=== PATIENT | female | born 1950 | race Caucasian/White ===

== ENCOUNTER 2017-06-11 05:23 | Day surgery (SDC) | payer MEDICARE, BC ==
[~2017-06-11] VITALS: Ht 170.2 cm; Wt 83.9 kg
[2017-06-11] MEDS ORDERED: SODIUM CHLORIDE 0.9% 1,000 ML IV SCH (06:22)
[2017-06-11] MEDS ORDERED: OXYC10TA6 PO (06:25)
[2017-06-11] MEDS ORDERED: GABA100C PO (06:25)
[2017-06-11] MEDS ORDERED: TRAZ50TA18 PO (06:25)
[2017-06-11] MEDS ORDERED: OMEP-110 PO (06:25)
[2017-06-11] MEDS ORDERED: PROTAMINE SULFATE 10 MG/ML, 5ML ONE (06:46)
[2017-06-11] MEDS ORDERED: THROMBIN 5,000 UNIT VIAL TP ONE (06:46)
[2017-06-11] MEDS ORDERED: HEPARIN 1,000 UNITS/ML, 10ML ONE (06:47)
[2017-06-11] MEDS ORDERED: BUPIVACAINE/PF-EPI 0.5% 1:200K ONE (06:47)
[2017-06-11 06:54] VITALS: BP 129/69
[2017-06-11] MEDS ORDERED: FENTANYL PF 100 MCG/2ML ONE ×2 (07:35→09:27)
[2017-06-11] MEDS ORDERED: MIDAZOLAM 1 MG/ML, 2ML ONE (07:35)
[2017-06-11] MEDS ORDERED: PROPOFOL 10 MG/ML, 20ML ONE (07:35)
[2017-06-11] MEDS ORDERED: DEXAMETHASONE 4 MG/ML, 1ML ONE (07:40)
[2017-06-11] MEDS ORDERED: ONDANSETRON 2MG/ML, 2ML ONE (07:40)
[2017-06-11] MEDS ORDERED: CEFAZOLIN 1,000 MG ONE (07:40)
[2017-06-11] MEDS ORDERED: PHENYLEPHRINE 10 MG/ML ONE (07:40)
[2017-06-11] MEDS ORDERED: LIDOCAINE 2%, 10ML ONE (07:46)
[2017-06-11] MEDS ORDERED: HYDROmorphone 1 MG/ML, 1ML IV PRN (09:00)
[2017-06-11] MEDS ORDERED: MEPERIDINE/PF 25MG/0.5ML IVPush PRN (09:00)
[2017-06-11] MEDS ORDERED: LABETALOL 5MG/ML, 20ML IV PRN (09:00)
[2017-06-11] MEDS ORDERED: MIDAZOLAM 1 MG/ML, 2ML IV PRN (09:00)
[2017-06-11] MEDS ORDERED: OXYcodone 5 MG/5 ML ORAL.SOL UDC PO PRN (09:00)
[2017-06-11] MEDS ORDERED: ONDANSETRON 2MG/ML, 2ML IVPush PRN (09:00)
[2017-06-11] MEDS ORDERED: OXYcodone 5 MG/5 ML ORAL.SOL UDC ONE (09:27)
[2017-06-11] MEDS: FENTANYL PF 100 MCG/2ML IV PRN ×3 (09:32→10:00)
== END 2017-06-11 11:08 | disposition home or self-care (01) ==
LOC: OUT 05:23
PROVIDERS: ATTEND Surgery Vascular Surgery
DX: N18.6 End stage renal disease (principal)
CPT/HCPCS: 36415; 36821; 49324; 80047; 93005; C1750; J0690; J1100; J1644; J2250; J2370; J2405; J2704; J3010; J3490; J7030; J2720

== ENCOUNTER 2018-05-06 09:16 | Day surgery (SDC) | payer MEDICARE, BC ==
[~2018-05-06] VITALS: Ht 170.2 cm; Wt 82.8 kg
[~2018-05-06 09:16] MED LIST: GABA100C PO; OMEP-110 PO; OXYC10TA6 PO; TRAZ50TA66 PO
[2018-05-06] MEDS ORDERED: SODIUM CHLORIDE 0.9% 1,000 ML IV SCH (09:47)
[2018-05-06 09:48] VITALS: BP 118/71
[2018-05-06] MEDS ORDERED: PLEASE ENTER HEIGHT AND WEIGHT MC SCH (10:00)
[2018-05-06] MEDS ORDERED: CEFAZOLIN 1,000 MG ONE (10:49)
[2018-05-06] MEDS ORDERED: PROPOFOL 10 MG/ML, 20ML ONE (10:49)
[2018-05-06] MEDS ORDERED: ROCURONIUM 10MG/ML,5ML ONE (10:49)
[2018-05-06] MEDS ORDERED: SUCCINYLCHOLINE 20 MG/ML, 10ML ONE (10:49)
[2018-05-06] MEDS ORDERED: HEPARIN 1,000 UNITS/ML, 10ML ONE (11:37)
[2018-05-06] MEDS ORDERED: MIDAZOLAM 1 MG/ML, 2ML ONE (14:39)
[2018-05-06] MEDS ORDERED: KETOROLAC 30 MG/1 ML IV PRN (15:00)
[2018-05-06] MEDS ORDERED: PROMETHAZINE 25 MG/ML, 1ML IV PRN (15:00)
[2018-05-06] MEDS ORDERED: ONDANSETRON 2MG/ML, 2ML IVPush PRN (15:00)
[2018-05-06] MEDS ORDERED: METOCLOPRAMIDE 5 MG/ML, 2ML IV PRN (15:00)
[2018-05-06] MEDS ORDERED: MEPERIDINE/PF 25MG/0.5ML IVPush PRN (15:00)
[2018-05-06] MEDS ORDERED: OXYcodone 5 MG/5 ML ORAL.SOL UDC PO PRN (15:00)
[2018-05-06] MEDS ORDERED: ALBUTEROL SULFATE 2.5 MG/3 ML NPPB PRN (15:00)
[2018-05-06] MEDS ORDERED: LABETALOL 5MG/ML, 20ML IV PRN (15:00)
[2018-05-06] MEDS ORDERED: hydrALAzine 20 MG/ML, 1ML IV PRN (15:00)
[2018-05-06] MEDS ORDERED: HYDROmorphone 1 MG/ML, 1ML INJ ONE (15:57)
[2018-05-06] MEDS ORDERED: FENTANYL PF 100 MCG/2ML ONE (15:57)
[2018-05-06] MEDS ORDERED: OXYcodone 5 MG/5 ML ORAL.SOL UDC ONE (15:57)
[2018-05-06] MEDS: HYDROmorphone 1 MG/ML, 1ML INJ IV PRN ×3 (16:01→16:18)
[2018-05-06] MEDS: FENTANYL PF 100 MCG/2ML IV PRN ×2 (16:02→16:26)
[2018-05-06] MEDS ORDERED: MEPERIDINE/PF 25MG/ML,1ML ONE (16:28)
== END 2018-05-06 18:05 | disposition home or self-care (01) ==
LOC: OUT 09:16
PROVIDERS: ATTEND Surgery Vascular Surgery
DX: T82.898A Other specified complication of vascular prosthetic devices, implants and grafts, initial encounter (principal); Y83.8 Other surgical procedures as the cause of abnormal reaction of the patient, or of later complication, without mention of misadventure at the time of the procedure; Y92.89 Other specified places as the place of occurrence of the external cause; N18.6 End stage renal disease
CPT/HCPCS: 36415; 36581; 36821; 80047; 93005; C1751; J0330; J0690; J1170; J1644; J2175; J2250; J2704; J3010

== ENCOUNTER 2018-05-20 10:04 | Day surgery (SDC) | payer MEDICARE, BC ==
[~2018-05-20] VITALS: Ht 170.2 cm; Wt 82.7 kg
[2018-05-20 10:56] VITALS: BP 110/69
[2018-05-20] MEDS ORDERED: SODIUM CHLORIDE 0.9% 1,000 ML IV SCH (11:00)
[2018-05-20] MEDS ORDERED: BUPIVACAINE/EPI 0.5% 1:200K ONE (12:40)
[2018-05-20] MEDS ORDERED: HEPARIN 5,000 UNITS/ML, 1ML ONE (12:40)
[2018-05-20] MEDS ORDERED: THROMBIN 20,000 UNIT VIAL TP ONE (13:25)
[2018-05-20] MEDS ORDERED: MIDAZOLAM 1 MG/ML, 2ML ONE (13:52)
[2018-05-20] MEDS ORDERED: FENTANYL PF 100 MCG/2ML ONE ×2 (13:52→15:07)
[2018-05-20] MEDS ORDERED: CEFAZOLIN 1,000 MG ONE (13:55)
[2018-05-20] MEDS ORDERED: PROPOFOL 10 MG/ML, 20ML ONE (13:55)
[2018-05-20] MEDS ORDERED: ONDANSETRON 2MG/ML, 2ML IV PRN (14:30)
[2018-05-20] MEDS ORDERED: LORazepam 2 MG/ML, 1ML IVPush PRN (14:30)
[2018-05-20] MEDS ORDERED: OXYcodone 5 MG/5 ML ORAL.SOL UDC PO PRN (14:30)
[2018-05-20] MEDS ORDERED: HYDROmorphone 1 MG/ML, 1ML VIAL ONE (15:07)
[2018-05-20] MEDS ORDERED: OXYcodone 5 MG/5 ML ORAL.SOL UDC ONE (15:07)
[2018-05-20] MEDS: FENTANYL PF 100 MCG/2ML IV PRN ×2 (15:10→15:25)
[2018-05-20] MEDS: HYDROmorphone 2 MG/ML, 1ML IVPush PRN ×2 (15:17→15:35)
== END 2018-05-20 18:05 | disposition home or self-care (01) ==
LOC: OUT 10:04
PROVIDERS: ATTEND Surgery Vascular Surgery
DX: T82.590A Other mechanical complication of surgically created arteriovenous fistula, initial encounter (principal); N18.6 End stage renal disease; Y83.8 Other surgical procedures as the cause of abnormal reaction of the patient, or of later complication, without mention of misadventure at the time of the procedure; Y92.89 Other specified places as the place of occurrence of the external cause
CPT/HCPCS: 36415; 36832; 80047; C1769; J0690; J1170; J1644; J2250; J2704; J3010; J7030

== ENCOUNTER → 2019-12-02 | Outpatient (CLI) | payer MEDICARE, BC | END | disposition home or self-care (01) | LOC: CVU 14:24 | PROVIDERS: ATTEND Internal Medicine Hematology & Oncology | DX: C90.00 Multiple myeloma not having achieved remission (principal); I08.3 Combined rheumatic disorders of mitral, aortic and tricuspid valves | CPT/HCPCS: 93306 ==

== ENCOUNTER 2020-02-25 14:25 | Inpatient (IN) | payer MEDICARE, BC ==
[~2020-02-25] VITALS: Ht 170.2 cm; Wt 76.5 kg
--- NOTE | 2020-02-25 14:40 | NUR ---
Bib by ezekiel from urgent care (d/t covid sxs and room air pox of 69%) Patient reports 5 days of increased sob/fever/chills/fatigue Dialysis m/w/f. Missed today, had full treatment sunday Room air pox confirmed (immediatley drops to 60s) b/p . "thats not too abnormal-I take midodrine but i didn't take my last 2 doses." placed on field agronomist, ecg obtained right forearm piv placed and right chest port accessed full set of labs including lactate and blood cultures drawn Provider to bedside
--- NOTE | 2020-02-25 15:26 | NUR ---
CXR AT BEDSIDE
[2020-02-25] MEDS ORDERED: SODIUM CHLORIDE 0.9% 1,000ML IVBOLUS ONE ×2 (15:30→16:30)
[2020-02-25] MEDS ORDERED: SODIUM CHLORIDE FLUSH 10ML SYR IVF ONE ×2 (15:30→16:30)
[2020-02-25] MEDS ORDERED: MIDODRINE 5 MG TABLET PO ONE (15:37)
[2020-02-25 15:41] LABS: MEAN CORPUSCULAR HEMOGLOBIN 33.5 pg (27.0-34.8); MEAN CORPUSCULAR HGB CONC 31.7 g/dL (32.4-35.8); MEAN PLATELET VOLUME 10.9 fL (7.4-10.4); PLATELET COUNT 115 x10^3/uL (130-400); RED BLOOD COUNT 3.04 x10^6/uL (3.82-5.3); RED CELL DISTRIBUTION WIDTH 20.4 % (9.6-15.2)
[2020-02-25 15:45] LABS: ALBUMIN 2.6 g/dL (3.4-5.0); ANION GAP 14 mmol/L (5-15); CALCIUM 7.1 mg/dL (8.5-10.1); CHLORIDE 96 mmol/L (98-107)
--- NOTE | 2020-02-25 15:50 | NUR ---
IVF ON DIAL A FLOW AT 125/HR (DIALYSIS PATIENT WHO APPEARS FLUID OVERLOADED AND MISSED DIALYSIS TODAY) MIDODRINE ORDERED FROM PHARMACY
--- NOTE | 2020-02-25 15:50 | NUR ---
MIDODRINE HELD PER MD (POTENTIAL SEPSIS=NPO) BLOOD PRESSURE REMAINS QUITE LOW ESPECIALLY DIASTOLIC TROPONIN ELEVATED-PROVIDER MADE AWARE- TO ADMIN 162 OF ASA RECREATION ATTENDANT SUPERVISOR MADE AWARE OF POTENTIAL FOR DETERIORATION-TO MOVE TO TRAUMA ROOM REPORT TO TRAUMA RN ANTOINETTE
[2020-02-25 15:51] LABS: ALANINE AMINOTRANSFERASE 18 U/L (12-78); ALKALINE PHOSPHATASE 122 U/L (45-117); CREATININE 6.81 mg/dL (0.55-1.02); TOTAL PROTEIN 5.4 g/dL (6.4-8.2)
[2020-02-25 15:55] LABS: TROPONIN I 0.191 ng/mL (0.000-0.045)
--- NOTE | 2020-02-25 15:55 | NUR ---
WITH REASSESSMENT PATIENT REPORTS "I TOOK 20MG OF MY MIDODRINE" PATIENT INSTRUCTED ON IMPORTANCE OF REMAINING NPO
[2020-02-25 16:10] LABS: MD YES
[2020-02-25 16:12] LABS: MONOS#(MANUAL) 1.04 x10^3/uL (0.3-2.7); MONOS% (MANUAL) 4 % (2-9)
[2020-02-25 16:13] LABS: BAND#(MANUAL) 2.87 x10^3/uL; BANDS%(MANUAL) 11 % (0-7); LYMPH#(MANUAL) 0.26 x10^3/uL (1-3.4); LYMPHS% (MANUAL) 1 % (22-44); SEGS% (MANUAL) 84 % (42-75)
[2020-02-25 16:14] LABS: ANISOCYTOSIS 2+
[2020-02-25 16:15] LABS: HYPOCHROMIA 1+; OVALOCYTES 1+
[2020-02-25] MEDS ORDERED: PIPERACILLIN/TAZO/PMX 3.375GM 50 ML ONE (16:15)
[2020-02-25] MEDS ORDERED: ASPIRIN 81 MG TABLET CHEW ONE (16:15)
[2020-02-25 16:16] LABS: SCHISTOCYTES 1+; SPHEROCYTES 1+
[2020-02-25 16:17] LABS: <PLATELET ESTIMATE> DECREASED; <PLT MORPHOLOGY> NORMAL PLT MORPH
[2020-02-25 16:18] LABS: CRENATED 1+
[2020-02-25] MEDS ORDERED: PIPERACILLIN/TAZO/PMX 3.375GM 50 ML IV ONE (16:30)
--- NOTE | 2020-02-25 16:30 | NUR ---
REPORT FROM SUZANNE ALMAZAN
--- NOTE | 2020-02-25 16:30 | NUR ---
RESUSCITATION POC CLARIFIED WITH ERP (DR. BUTCHER) PATIENT WITH MULTIPLE SIRS VITALS SIGNS WELL ELEVATED WBC/BILIRUBIN. TO BOLUS A TOTAL OF 1L NS; NO 30ML/KG PATIENT OVERLOADED WITH FLUID. AFTER THAT LITER ERP TO PERFORM BEDSIDE ECHO TO DETERMINE NEED FOR MORE FLUIDS OR TRANSITION TO LEVOPHED FOR MAP >65
[2020-02-25] MEDS ORDERED: ASPIRIN 81 MG TABLET CHEW PO ONE ×2 (17:00)
[2020-02-25] MEDS ORDERED: DEXAMETHASONE 4 MG/ML, 5ML IVPush ONE (17:00)
[2020-02-25] MEDS ORDERED: NOREPINEPHRINE 8 MG in SODIUM CHLORIDE 0.9% 242 ML IV PRN (17:00)
--- NOTE | 2020-02-25 17:10 | NUR ---
DR Kimbrough at bedside for evaluation.
--- NOTE | 2020-02-25 17:11 | NUR ---
Per Dr. Luis E monroy with only prior 500 ml NS bolus due to BNP [id number], not ordered 2340 as sepsis protocol.
[2020-02-25] MEDS ORDERED: DONE5TAB14 PO (17:20)
[2020-02-25] MEDS ORDERED: ONDA4TAB7 PO (17:20)
[2020-02-25] MEDS ORDERED: MIDO10TA PO (17:20)
[2020-02-25] MEDS ORDERED: VANCOMYCIN PER PHARMACY MC PRN (17:30)
[2020-02-25] MEDS ORDERED: PHARMACOKINETIC MONITORING MC PRN (17:30)
[2020-02-25] MEDS ORDERED: VANCOMYCIN 1,500 MG in SODIUM CHLORIDE 0.9% 250 ML IV ONE ×2 (17:30)
[2020-02-25] MEDS ORDERED: PHARMACY MAY ADJ FOR RENAL FX MC PRN (17:30)
[2020-02-25] MEDS ORDERED: DEXAMETHASONE 4 MG/ML, 5ML ONE (17:36)
[2020-02-25] MEDS ORDERED: ONDANSETRON 2MG/ML, 2ML IVPush PRN (18:00)
[2020-02-25] MEDS: HEPARIN 5,000 UNITS/ML, 1ML SQ SCH (18:00)
--- NOTE | 2020-02-25 18:13 | NUR ---
Report called to Ceci ALMAZAN. Pt and family aware of transfer.
[2020-02-25 18:43] VITALS: BP 105/28
[2020-02-25 18:50] LABS: TROPONIN I 0.194 ng/mL (0.000-0.045)
[2020-02-25] MEDS: NOREPINEPHRINE 8 MG in SODIUM CHLORIDE 0.9% 242 ML IV PRN (20:12)
[2020-02-25] MEDS: GABAPENTIN 100 MG CAPSULE PO PRN (20:27)
[2020-02-25] MEDS: HYDROmorphone 2 MG/ML, 1ML IVPush PRN ×2 (20:27→23:22)
[2020-02-25] MEDS: ACETAMINOPHEN 325 MG TABLET PO PRN (20:28)
[2020-02-25] MEDS: MIDODRINE 5 MG TABLET PO SCH (20:28)
[2020-02-25] MEDS: DONEPEZIL 5 MG TABLET PO SCH (20:44)
[2020-02-25] MEDS ORDERED: FILTER 0.22 MICRON FOR AMIODARONE IV PRN (21:30)
[2020-02-25] MEDS ORDERED: AMIODARONE 150 MG in DEXTROSE 5% 100 ML IV ONE (21:30)
[2020-02-25] MEDS ORDERED: SODIUM CHLORIDE 0.9%, 500ML IVBOLUS ONE (21:30)
[2020-02-25] MEDS: AMIODARONE 450 MG in DEXTROSE 5% 241 ML IV PRN (22:22)
[2020-02-25] MEDS: PIPERACILLIN/TAZO/PMX 2.25GM 50 ML IVPB SCH (23:58)
[2020-02-26 01:00] LABS: TROPONIN I 0.135 ng/mL (0.000-0.045)
[2020-02-26] MEDS: HEPARIN 5,000 UNITS/ML, 1ML SQ SCH ×3 (01:51→17:15)
[2020-02-26] MEDS: AMIODARONE 450 MG in DEXTROSE 5% 241 ML IV PRN (04:37)
[2020-02-26] MEDS: HYDROmorphone 2 MG/ML, 1ML IVPush PRN (05:02)
[2020-02-26 05:08] LABS: MEAN CORPUSCULAR HEMOGLOBIN 32.8 pg (27.0-34.8); MEAN CORPUSCULAR HGB CONC 31.2 g/dL (32.4-35.8); MEAN PLATELET VOLUME 11.2 fL (7.4-10.4); PLATELET COUNT 168 x10^3/uL (130-400); RED BLOOD COUNT 3.21 x10^6/uL (3.82-5.3); RED CELL DISTRIBUTION WIDTH 20.6 % (9.6-15.2)
[2020-02-26 05:15] LABS: MD YES
[2020-02-26 05:20] LABS: ALBUMIN 2.2 g/dL (3.4-5.0); ANION GAP 10 mmol/L (5-15); CALCIUM 6.4 mg/dL (8.5-10.1); CHLORIDE 98 mmol/L (98-107)
[2020-02-26 05:47] LABS: ANISOCYTOSIS 1+; BAND#(MANUAL) 2.42 x10^3/uL; BANDS%(MANUAL) 6 % (0-7); MONOS#(MANUAL) 0.81 x10^3/uL (0.3-2.7); MONOS% (MANUAL) 2 % (2-9); SEG#(MANUAL) 37.17 x10^3/uL (1.8-6.8); SEGS% (MANUAL) 92 % (42-75)
[2020-02-26 05:49] LABS: ALANINE AMINOTRANSFERASE 16 U/L (12-78); ALKALINE PHOSPHATASE 141 U/L (45-117); BILIRUBIN,TOTAL 1.8 mg/dL (0.2-1.0); CREATININE 7.01 mg/dL (0.55-1.02); OVALOCYTES 1+; TOTAL PROTEIN 5.3 g/dL (6.4-8.2)
[2020-02-26 05:50] LABS: <PLATELET ESTIMATE> ADEQUATE; <PLT MORPHOLOGY> NORMAL PLT MORPH
[2020-02-26] MEDS: OMEPRAZOLE 20 MG CAPSULE.DR PO SCH (08:55)
[2020-02-26] MEDS: MIDODRINE 5 MG TABLET PO SCH ×3 (08:56→20:08)
[2020-02-26] MEDS: DEXAMETHASONE 4 MG/ML, 1ML IVPush SCH (08:58)
[2020-02-26] MEDS: PIPERACILLIN/TAZO/PMX 2.25GM 50 ML IVPB SCH ×2 (09:08→16:09)
[2020-02-26] MEDS: DONEPEZIL 5 MG TABLET PO SCH (20:09)
[2020-02-27] MEDS: PIPERACILLIN/TAZO/PMX 2.25GM 50 ML IVPB SCH ×3 (00:25→15:02)
[2020-02-27] MEDS: HEPARIN 5,000 UNITS/ML, 1ML SQ SCH ×3 (01:43→18:31)
[2020-02-27] MEDS: NOREPINEPHRINE 8 MG in SODIUM CHLORIDE 0.9% 242 ML IV PRN (01:44)
[2020-02-27 04:45] LABS: MEAN CORPUSCULAR HGB CONC 31.4 g/dL (32.4-35.8); PLATELET COUNT 144 x10^3/uL (130-400); RED BLOOD COUNT 3.26 x10^6/uL (3.82-5.3); RED CELL DISTRIBUTION WIDTH 20.2 % (9.6-15.2)
[2020-02-27 04:57] LABS: ALBUMIN 2.3 g/dL (3.4-5.0); CHLORIDE 103 mmol/L (98-107)
[2020-02-27 05:18] LABS: % IRON SATURATION 16 % (20-55); ALANINE AMINOTRANSFERASE 21 U/L (12-78); ALKALINE PHOSPHATASE 151 U/L (45-117); ANION GAP 6 mmol/L (5-15); BILIRUBIN,TOTAL 0.9 mg/dL (0.2-1.0); CALCIUM 7.1 mg/dL (8.5-10.1); CREATININE 4.33 mg/dL (0.55-1.02); FREE T4 (FREE THYROXINE) 0.97 ng/dL (0.76-1.46); IRON LEVEL 33 mcg/dL (50-170); TOTAL IRON BINDING CAPACITY 206 mcg/dL (250-450); TOTAL PROTEIN 5.3 g/dL (6.4-8.2); VANCOMYCIN,RANDOM 13.4 mcg/mL
[2020-02-27 05:54] LABS: MD YES
[2020-02-27 05:55] LABS: BAND#(MANUAL) 0.66 x10^3/uL; BANDS%(MANUAL) 2 % (0-7); LYMPH#(MANUAL) 0.33 x10^3/uL (1-3.4); LYMPHS% (MANUAL) 1 % (22-44); MONOS#(MANUAL) 1.32 x10^3/uL (0.3-2.7); MONOS% (MANUAL) 4 % (2-9); SEGS% (MANUAL) 93 % (42-75)
[2020-02-27 05:56] LABS: ANISOCYTOSIS 1+; OVALOCYTES 1+; SPHEROCYTES 1+
[2020-02-27 05:57] LABS: <PLATELET ESTIMATE> DECREASED; <PLT MORPHOLOGY> NORMAL PLT MORPH
[2020-02-27] MEDS: OMEPRAZOLE 20 MG CAPSULE.DR PO SCH (07:43)
[2020-02-27] MEDS: MIDODRINE 5 MG TABLET PO SCH ×3 (07:43→20:05)
[2020-02-27] MEDS: DEXAMETHASONE 4 MG/ML, 1ML IVPush SCH (07:43)
[2020-02-27] MEDS ORDERED: VANCOMYCIN 1,500 MG in SODIUM CHLORIDE 0.9% 250 ML IV ONE (12:00)
[2020-02-27] MEDS ORDERED: ALBUMIN HUMAN 25% 400 ML ONE (14:58)
[2020-02-27] MEDS: HYDROmorphone 2 MG/ML, 1ML IVPush PRN (15:18)
[2020-02-27] MEDS: ALBUMIN HUMAN 25% 100 ML IV PRN ×2 (16:12→18:37)
[2020-02-27] MEDS: DONEPEZIL 5 MG TABLET PO SCH (20:05)
[2020-02-27 21:53] VITALS: BP 122/79
[2020-02-28] MEDS: PIPERACILLIN/TAZO/PMX 2.25GM 50 ML IVPB SCH (00:20)
[2020-02-28 02:04] VITALS: BP 134/84
[2020-02-28] MEDS: HEPARIN 5,000 UNITS/ML, 1ML SQ SCH ×3 (02:04→18:04)
[2020-02-28 06:22] LABS: MEAN CORPUSCULAR HEMOGLOBIN 33.5 pg (27.0-34.8); MEAN CORPUSCULAR HGB CONC 32.1 g/dL (32.4-35.8); MEAN PLATELET VOLUME 11.2 fL (7.4-10.4); PLATELET COUNT 80 x10^3/uL (130-400); RED BLOOD COUNT 2.72 x10^6/uL (3.82-5.3); RED CELL DISTRIBUTION WIDTH 19.8 % (9.6-15.2)
[2020-02-28 06:37] LABS: ALBUMIN 3.4 g/dL (3.4-5.0); ANION GAP 7 mmol/L (5-15); CALCIUM 7.2 mg/dL (8.5-10.1); CHLORIDE 100 mmol/L (98-107)
[2020-02-28 06:41] LABS: ALANINE AMINOTRANSFERASE 18 U/L (12-78); ALKALINE PHOSPHATASE 109 U/L (45-117); TOTAL PROTEIN 5.8 g/dL (6.4-8.2)
[2020-02-28 07:02] VITALS: BP 126/82
[2020-02-28 07:15] LABS: MD YES
[2020-02-28 07:16] LABS: ANISOCYTOSIS 1+; BAND#(MANUAL) 0.16 x10^3/uL; BANDS%(MANUAL) 1 % (0-7); MONOS#(MANUAL) 0.49 x10^3/uL (0.3-2.7); MONOS% (MANUAL) 3 % (2-9); MYELOCYTES# (MANUAL) 0.16 x10^3/uL (0-0); MYELOCYTES% (MANUAL) 1 % (0-0); SEG#(MANUAL) 15.49 x10^3/uL (1.8-6.8); SEGS% (MANUAL) 95 % (42-75)
[2020-02-28 07:17] LABS: OVALOCYTES 1+; POLYCHROMASIA 1+; SPHEROCYTES 1+; TEAR DROPS 1+
[2020-02-28 07:18] LABS: <PLATELET ESTIMATE> DECREASED; LARGE PLATELETS 1+
[2020-02-28] MEDS: CEFTRIAXONE PMX 2GM/50ML 50 ML IVPB SCH (08:16)
[2020-02-28] MEDS: MIDODRINE 5 MG TABLET PO SCH ×3 (08:17→20:34)
[2020-02-28] MEDS: OMEPRAZOLE 20 MG CAPSULE.DR PO SCH (08:17)
[2020-02-28 12:50] VITALS: BP 137/83
[2020-02-28] MEDS: ACETAMINOPHEN 325 MG TABLET PO PRN (20:33)
[2020-02-28] MEDS: DONEPEZIL 5 MG TABLET PO SCH (20:34)
[2020-02-28] MEDS: GABAPENTIN 100 MG CAPSULE PO PRN (20:54)
[2020-02-29] MEDS: HEPARIN 5,000 UNITS/ML, 1ML SQ SCH (01:51)
[2020-02-29 03:15] VITALS: BP 134/82
[2020-02-29] MEDS: ACETAMINOPHEN 325 MG TABLET PO PRN ×2 (05:09→12:21)
[2020-02-29 06:17] LABS: BASOPHILS % (AUTO) 0 % (0-1); EOSINOPHILS % (AUTO) 0 % (1-7); LYMPHOCYTES % (AUTO) 1 % (22-44); MEAN CORPUSCULAR HEMOGLOBIN 33.3 pg (27.0-34.8); MEAN CORPUSCULAR HGB CONC 31.8 g/dL (32.4-35.8); MEAN PLATELET VOLUME 11.4 fL (7.4-10.4); MONOCYTES % (AUTO) 4 % (2-9); NEUTROPHILS % (AUTO) 95 % (42-75); PLATELET COUNT 108 x10^3/uL (130-400); RED BLOOD COUNT 2.98 x10^6/uL (3.82-5.3); RED CELL DISTRIBUTION WIDTH 20.7 % (9.6-15.2)
[2020-02-29 06:24] LABS: CHLORIDE 99 mmol/L (98-107)
[2020-02-29 06:31] LABS: ANION GAP 9 mmol/L (5-15); CALCIUM 7.3 mg/dL (8.5-10.1); CREATININE 4.19 mg/dL (0.55-1.02)
[2020-02-29 06:48] LABS: MD SCAN
[2020-02-29 08:18] VITALS: BP 137/85
[2020-02-29] MEDS: MIDODRINE 5 MG TABLET PO SCH ×3 (08:22→20:43)
[2020-02-29] MEDS: CEFTRIAXONE PMX 2GM/50ML 50 ML IVPB SCH (08:22)
[2020-02-29] MEDS: OMEPRAZOLE 20 MG CAPSULE.DR PO SCH (08:22)
[2020-02-29 13:15] VITALS: BP 135/81
[2020-02-29 15:21] LABS: MICROSCOPIC INDICATED
[2020-02-29 16:05] VITALS: BP 125/76
[2020-02-29 19:51] VITALS: BP 140/84
[2020-02-29] MEDS: DONEPEZIL 5 MG TABLET PO SCH (20:44)
[2020-02-29 23:32] VITALS: BP 133/79
[2020-03-01 00:30] VITALS: BP 131/82
[2020-03-01] MEDS: ACETAMINOPHEN 325 MG TABLET PO PRN ×2 (05:26→23:19)
[2020-03-01 07:01] LABS: BASOPHILS % (AUTO) 1 % (0-1); EOSINOPHILS % (AUTO) 0 % (1-7); LYMPHOCYTES % (AUTO) 1 % (22-44); MEAN CORPUSCULAR HEMOGLOBIN 33.1 pg (27.0-34.8); MEAN CORPUSCULAR HGB CONC 31.5 g/dL (32.4-35.8); MEAN PLATELET VOLUME 11.1 fL (7.4-10.4); MONOCYTES % (AUTO) 4 % (2-9); NEUTROPHILS % (AUTO) 94 % (42-75); PLATELET COUNT 100 x10^3/uL (130-400); RED CELL DISTRIBUTION WIDTH 19.9 % (9.6-15.2)
[2020-03-01 07:12] LABS: ALANINE AMINOTRANSFERASE 20 U/L (12-78); ALBUMIN 3.1 g/dL (3.4-5.0); ANION GAP 9 mmol/L (5-15); CALCIUM 6.5 mg/dL (8.5-10.1); CHLORIDE 100 mmol/L (98-107); CREATININE 5.16 mg/dL (0.55-1.02); HCT (SEDRATE) 35.7 % (34.6-47.8)
[2020-03-01 07:18] LABS: ALKALINE PHOSPHATASE 132 U/L (45-117); BILIRUBIN,TOTAL 0.8 mg/dL (0.2-1.0); TOTAL PROTEIN 5.7 g/dL (6.4-8.2)
[2020-03-01] MEDS: MIDODRINE 5 MG TABLET PO SCH ×3 (08:12→21:40)
[2020-03-01] MEDS: OMEPRAZOLE 20 MG CAPSULE.DR PO SCH (08:12)
[2020-03-01] MEDS: CEFTRIAXONE PMX 2GM/50ML 50 ML IVPB SCH (08:14)
[2020-03-01 08:27] VITALS: BP 151/97
[2020-03-01 08:53] LABS: MD SCAN
[2020-03-01 12:42] VITALS: BP 147/65
[2020-03-01 19:23] VITALS: BP 98/67
[2020-03-01] MEDS: DONEPEZIL 5 MG TABLET PO SCH (21:40)
[2020-03-02 00:39] VITALS: BP 115/64
[2020-03-02] MEDS: MELATONIN 5 MG TABLET PO PRN ×2 (01:43→22:48)
[2020-03-02 07:00] LABS: BASOPHILS % (AUTO) 1 % (0-1); EOSINOPHILS % (AUTO) 0 % (1-7); LYMPHOCYTES % (AUTO) 2 % (22-44); MEAN CORPUSCULAR HEMOGLOBIN 32.7 pg (27.0-34.8); MEAN CORPUSCULAR HGB CONC 31.2 g/dL (32.4-35.8); MEAN PLATELET VOLUME 10.4 fL (7.4-10.4); MONOCYTES % (AUTO) 4 % (2-9); NEUTROPHILS % (AUTO) 94 % (42-75); PLATELET COUNT 82 x10^3/uL (130-400); RED BLOOD COUNT 3.21 x10^6/uL (3.82-5.3); RED CELL DISTRIBUTION WIDTH 20.1 % (9.6-15.2)
[2020-03-02 07:11] LABS: ALBUMIN 2.7 g/dL (3.4-5.0); ANION GAP 7 mmol/L (5-15); CALCIUM 6.9 mg/dL (8.5-10.1); CHLORIDE 102 mmol/L (98-107)
[2020-03-02 07:15] LABS: ALANINE AMINOTRANSFERASE 17 U/L (12-78); ALKALINE PHOSPHATASE 113 U/L (45-117); BILIRUBIN,TOTAL 0.7 mg/dL (0.2-1.0); CREATININE 3.82 mg/dL (0.55-1.02); TOTAL PROTEIN 5.3 g/dL (6.4-8.2)
[2020-03-02 07:33] LABS: MD SCAN
[2020-03-02] MEDS: MIDODRINE 5 MG TABLET PO SCH ×3 (07:41→20:35)
[2020-03-02] MEDS: OMEPRAZOLE 20 MG CAPSULE.DR PO SCH (07:41)
[2020-03-02] MEDS: CEFTRIAXONE PMX 2GM/50ML 50 ML IVPB SCH (07:41)
[2020-03-02 08:28] VITALS: BP 120/93
[2020-03-02] MEDS ORDERED: LIDOCAINE 1%, 10ML ONE ×2 (08:37→11:57)
[2020-03-02] MEDS: SEVELAMER CARBONATE 800MG TAB PO SCH ×2 (12:42→17:25)
[2020-03-02 12:47] VITALS: BP 95/62
[2020-03-02] MEDS: TRAZODONE 50MG TABLET PO SCH (20:34)
[2020-03-02] MEDS: DONEPEZIL 5 MG TABLET PO SCH (20:35)
[2020-03-02 20:44] VITALS: BP 122/65
[2020-03-03 01:44] VITALS: BP 103/68
[2020-03-03 06:05] LABS: ALBUMIN 2.6 g/dL (3.4-5.0); ANION GAP 9 mmol/L (5-15); CALCIUM 6.7 mg/dL (8.5-10.1); CHLORIDE 101 mmol/L (98-107)
[2020-03-03 06:09] LABS: ALANINE AMINOTRANSFERASE 18 U/L (12-78); ALKALINE PHOSPHATASE 110 U/L (45-117); BILIRUBIN,TOTAL 0.7 mg/dL (0.2-1.0); CREATININE 4.85 mg/dL (0.55-1.02); TOTAL PROTEIN 5.3 g/dL (6.4-8.2)
[2020-03-03 07:12] VITALS: BP 107/68
[2020-03-03] MEDS: SEVELAMER CARBONATE 800MG TAB PO SCH (07:29)
[2020-03-03] MEDS: OMEPRAZOLE 20 MG CAPSULE.DR PO SCH (07:29)
[2020-03-03] MEDS: MIDODRINE 5 MG TABLET PO SCH ×3 (07:30→21:41)
[2020-03-03] MEDS: CEFTRIAXONE PMX 2GM/50ML 50 ML IVPB SCH (07:59)
[2020-03-03 09:00] LABS: BASOPHILS % (AUTO) 1 % (0-1); EOSINOPHILS % (AUTO) 1 % (1-7); LYMPHOCYTES % (AUTO) 2 % (22-44); MEAN CORPUSCULAR HEMOGLOBIN 33.2 pg (27.0-34.8); MEAN CORPUSCULAR HGB CONC 31.5 g/dL (32.4-35.8); MEAN PLATELET VOLUME 10.5 fL (7.4-10.4); MONOCYTES % (AUTO) 5 % (2-9); NEUTROPHILS % (AUTO) 92 % (42-75); PLATELET COUNT 83 x10^3/uL (130-400); RED BLOOD COUNT 3.02 x10^6/uL (3.82-5.3); RED CELL DISTRIBUTION WIDTH 19.8 % (9.6-15.2)
[2020-03-03] MEDS ORDERED: SULFAMETH./TRIMETHOPRIM DS 800MG/160MG TABLET PO SCH (09:00)
[2020-03-03 09:29] LABS: MD SCAN
[2020-03-03] MEDS: CALCIUM ACETATE 667 MG CAPSULE PO SCH ×2 (12:08→16:57)
[2020-03-03] MEDS ORDERED: CHLORHEXIDINE 15 ML UDC ONE (12:11)
[2020-03-03] MEDS ORDERED: FENTANYL PF 250 MCG/5ML ONE (12:25)
[2020-03-03] MEDS ORDERED: CHLORHEXIDINE 15 ML UDC MM ONE (12:30)
[2020-03-03] MEDS ORDERED: BUPIVACAINE/PF 0.5% ONE (12:55)
[2020-03-03] MEDS ORDERED: TALC 4 GM VIAL ONE (12:55)
[2020-03-03] MEDS ORDERED: EPINEPHRINE 1 MG/ML, 1ML ONE (12:55)
[2020-03-03] MEDS ORDERED: CEFAZOLIN 1,000 MG ONE (13:15)
[2020-03-03] MEDS ORDERED: PROPOFOL 10 MG/ML, 20ML ONE (13:15)
[2020-03-03] MEDS ORDERED: LIDOCAINE-MPF 1%, 2ML ENDO PRN (15:00)
[2020-03-03] MEDS: FENTANYL PF 100 MCG/2ML IVPush PRN ×2 (15:21→15:55)
[2020-03-03] MEDS ORDERED: POTASSIUM CHLORIDE 20 MEQ in LACTATED RINGERS 1,000 ML IV SCH (15:30)
[2020-03-03] MEDS: PROPOFOL 100 ML IV PRN (15:51)
[2020-03-03 16:28] LABS: BASOPHILS % (AUTO) 0 % (0-1); EOSINOPHILS % (AUTO) 0 % (1-7); LYMPHOCYTES % (AUTO) 0 % (22-44); MEAN CORPUSCULAR HGB CONC 31.9 g/dL (32.4-35.8); MEAN PLATELET VOLUME 10.4 fL (7.4-10.4); MONOCYTES % (AUTO) 4 % (2-9); NEUTROPHILS % (AUTO) 96 % (42-75); PLATELET COUNT 85 x10^3/uL (130-400); RED BLOOD COUNT 3.08 x10^6/uL (3.82-5.3); RED CELL DISTRIBUTION WIDTH 19.5 % (9.6-15.2)
[2020-03-03 16:29] LABS: MD NO
[2020-03-03 16:33] LABS: ANION GAP 16 mmol/L (5-15); CALCIUM 6.5 mg/dL (8.5-10.1); CHLORIDE 102 mmol/L (98-107); CREATININE 5.16 mg/dL (0.55-1.02); TRIGLYCERIDES 110 mg/dL (50-200)
[2020-03-03] MEDS: SULFAMETH/TRIMETHOPRIM 40-8MG/ML SUSP. PO SCH (17:52)
[2020-03-03] MEDS: HEPARIN 5,000 UNITS/ML, 1ML SQ SCH (17:52)
[2020-03-03] MEDS: TRAZODONE 50MG TABLET PO SCH (21:40)
[2020-03-03] MEDS: DONEPEZIL 5 MG TABLET PO SCH (21:41)
[2020-03-04] MEDS: HEPARIN 5,000 UNITS/ML, 1ML SQ SCH ×3 (01:58→18:37)
[2020-03-04] MEDS: PROPOFOL 100 ML IV PRN (01:59)
[2020-03-04] MEDS: FENTANYL PF 100 MCG/2ML IVPush PRN (03:54)
[2020-03-04 04:20] LABS: BASOPHILS % (AUTO) 0 % (0-1); EOSINOPHILS % (AUTO) 0 % (1-7); LYMPHOCYTES % (AUTO) 1 % (22-44); MEAN CORPUSCULAR HGB CONC 31.9 g/dL (32.4-35.8); MEAN PLATELET VOLUME 11.5 fL (7.4-10.4); MONOCYTES % (AUTO) 6 % (2-9); NEUTROPHILS % (AUTO) 92 % (42-75); PLATELET COUNT 91 x10^3/uL (130-400); RED BLOOD COUNT 2.72 x10^6/uL (3.82-5.3); RED CELL DISTRIBUTION WIDTH 19.7 % (9.6-15.2)
[2020-03-04 04:21] LABS: MD NO
[2020-03-04 04:33] LABS: ALANINE AMINOTRANSFERASE 13 U/L (12-78); ALBUMIN 2.2 g/dL (3.4-5.0); ANION GAP 13 mmol/L (5-15); CALCIUM 6.1 mg/dL (8.5-10.1); CHLORIDE 104 mmol/L (98-107); CREATININE 5.67 mg/dL (0.55-1.02)
[2020-03-04 04:36] LABS: ALKALINE PHOSPHATASE 101 U/L (45-117); BILIRUBIN,TOTAL 0.5 mg/dL (0.2-1.0); TOTAL PROTEIN 4.4 g/dL (6.4-8.2)
[2020-03-04] MEDS: FERROUS SULFATE 220 MG/5 ML ORAL SOL PO SCH ×2 (08:25→17:00)
[2020-03-04] MEDS: LINEZOLID 20MG/ML ORAL SUSP PO SCH ×2 (08:25→18:30)
[2020-03-04] MEDS: PANTOPRAZOLE 40 MG IV IV SCH (08:25)
[2020-03-04] MEDS: CEFTRIAXONE PMX 2GM/50ML 50 ML IVPB SCH (08:25)
[2020-03-04] MEDS: CALCIUM ACETATE 667 MG CAPSULE PO SCH ×3 (08:26→17:00)
[2020-03-04] MEDS: SULFAMETH/TRIMETHOPRIM 40-8MG/ML SUSP. PO SCH (08:26)
[2020-03-04] MEDS: MIDODRINE 5 MG TABLET PO SCH ×3 (08:27→20:47)
[2020-03-04] MEDS ORDERED: CALCIUM CHLORIDE 13.6 MEQ in SODIUM CHLORIDE 0.9% 100 ML IV ONE (09:30)
[2020-03-04] MEDS: GABAPENTIN 100 MG CAPSULE PO PRN (12:01)
[2020-03-04] MEDS: HYDROmorphone 1 MG/ML, 1ML INJ IV PRN ×3 (12:02→17:01)
[2020-03-04] MEDS: ACETAMINOPHEN 325 MG TABLET PO PRN (13:00)
[2020-03-04] MEDS: ERTAPENEM 0.5 GM in SODIUM CHLORIDE 0.9% 50 ML IV SCH (13:01)
[2020-03-04] MEDS ORDERED: LORazepam 1MG TABLET ONE (16:40)
[2020-03-04] MEDS: LORazepam 0.5MG TABLET PO PRN (16:46)
[2020-03-04 18:44] VITALS: BP 111/72
[2020-03-04] MEDS: TRAZODONE 50MG TABLET PO SCH (20:47)
[2020-03-04] MEDS: DONEPEZIL 5 MG TABLET PO SCH (20:47)
[2020-03-04] MEDS: morphine SULFATE 10 MG/ML, 1ML IV PRN ×2 (21:02→22:16)
[2020-03-05 01:18] VITALS: BP 109/71
[2020-03-05] MEDS: HEPARIN 5,000 UNITS/ML, 1ML SQ SCH ×3 (01:39→18:42)
[2020-03-05] MEDS: morphine SULFATE 10 MG/ML, 1ML IV PRN ×2 (01:47→06:17)
[2020-03-05] MEDS: GABAPENTIN 100 MG CAPSULE PO PRN ×2 (01:54→20:33)
[2020-03-05] MEDS: LORazepam 0.5MG TABLET PO PRN ×2 (01:54→10:53)
[2020-03-05 06:42] VITALS: BP 150/83
[2020-03-05 07:03] LABS: BASOPHILS % (AUTO) 0 % (0-1); EOSINOPHILS % (AUTO) 0 % (1-7); LYMPHOCYTES % (AUTO) 2 % (22-44); MEAN CORPUSCULAR HEMOGLOBIN 33.2 pg (27.0-34.8); MEAN CORPUSCULAR HGB CONC 32.3 g/dL (32.4-35.8); MEAN PLATELET VOLUME 11.4 fL (7.4-10.4); MONOCYTES % (AUTO) 12 % (2-9); NEUTROPHILS % (AUTO) 86 % (42-75); PLATELET COUNT 99 x10^3/uL (130-400); RED BLOOD COUNT 3.05 x10^6/uL (3.82-5.3); RED CELL DISTRIBUTION WIDTH 19.6 % (9.6-15.2)
[2020-03-05 07:05] LABS: MD NO
[2020-03-05 07:13] LABS: ALBUMIN 2.5 g/dL (3.4-5.0); ANION GAP 8 mmol/L (5-15); CALCIUM 7.2 mg/dL (8.5-10.1); CHLORIDE 100 mmol/L (98-107)
[2020-03-05 07:16] LABS: ALANINE AMINOTRANSFERASE 12 U/L (12-78); ALKALINE PHOSPHATASE 140 U/L (45-117); BILIRUBIN,TOTAL 0.6 mg/dL (0.2-1.0); CREATININE 3.93 mg/dL (0.55-1.02)
[2020-03-05] MEDS: FERROUS SULFATE 220 MG/5 ML ORAL SOL PO SCH ×2 (08:00→16:49)
[2020-03-05] MEDS: CALCIUM ACETATE 667 MG CAPSULE PO SCH ×3 (08:00→16:49)
[2020-03-05] MEDS: LINEZOLID 20MG/ML ORAL SUSP PO SCH ×2 (08:30→20:35)
[2020-03-05] MEDS: MIDODRINE 5 MG TABLET PO SCH ×3 (08:41→20:32)
[2020-03-05] MEDS: PANTOPRAZOLE 40 MG IV IV SCH (08:42)
[2020-03-05] MEDS: CALCITRIOL 0.25 MCG CAPSULE PO SCH (09:00)
[2020-03-05] MEDS: HYDROmorphone 1 MG/ML, 1ML INJ IV PRN ×6 (10:43→22:23)
[2020-03-05] MEDS: ERTAPENEM 0.5 GM in SODIUM CHLORIDE 0.9% 50 ML IV SCH (13:04)
[2020-03-05 13:24] VITALS: BP 123/84
[2020-03-05 18:33] VITALS: BP 100/64
[2020-03-05] MEDS: TRAZODONE 50MG TABLET PO SCH (20:32)
[2020-03-05] MEDS: DONEPEZIL 5 MG TABLET PO SCH (20:32)
[2020-03-05] MEDS: MELATONIN 5 MG TABLET PO PRN (20:32)
[2020-03-06 01:02] VITALS: BP 102/67
[2020-03-06] MEDS: HYDROmorphone 1 MG/ML, 1ML INJ IV PRN ×7 (01:24→20:44)
[2020-03-06] MEDS: LORazepam 0.5MG TABLET PO PRN ×3 (01:24→20:44)
[2020-03-06] MEDS: HEPARIN 5,000 UNITS/ML, 1ML SQ SCH ×3 (02:00→20:43)
[2020-03-06 05:10] LABS: BASOPHILS % (AUTO) 1 % (0-1); EOSINOPHILS % (AUTO) 1 % (1-7); LYMPHOCYTES % (AUTO) 2 % (22-44); MEAN CORPUSCULAR HEMOGLOBIN 32.9 pg (27.0-34.8); MEAN CORPUSCULAR HGB CONC 31.9 g/dL (32.4-35.8); MEAN PLATELET VOLUME 10.7 fL (7.4-10.4); MONOCYTES % (AUTO) 15 % (2-9); NEUTROPHILS % (AUTO) 82 % (42-75); PLATELET COUNT 83 x10^3/uL (130-400); RED BLOOD COUNT 2.82 x10^6/uL (3.82-5.3); RED CELL DISTRIBUTION WIDTH 19.7 % (9.6-15.2)
[2020-03-06 05:13] LABS: ALBUMIN 2.5 g/dL (3.4-5.0); ANION GAP 7 mmol/L (5-15); CALCIUM 7.8 mg/dL (8.5-10.1); CHLORIDE 100 mmol/L (98-107)
[2020-03-06 05:17] LABS: ALANINE AMINOTRANSFERASE 11 U/L (12-78); ALKALINE PHOSPHATASE 131 U/L (45-117); BILIRUBIN,TOTAL 0.8 mg/dL (0.2-1.0); CREATININE 3.17 mg/dL (0.55-1.02); TOTAL PROTEIN 4.9 g/dL (6.4-8.2)
[2020-03-06 06:13] LABS: ANISOCYTOSIS 2+; HYPOCHROMIA 2+; MD MORPH REVIEW ONLY
[2020-03-06 06:14] LABS: <PLATELET ESTIMATE> DECREASED; <PLT MORPHOLOGY> NORMAL PLT MORPH; OVALOCYTES 1+
[2020-03-06 06:51] LABS: OCCULT BLOOD NEGATIVE (NEGATIVE)
[2020-03-06] MEDS: CALCIUM ACETATE 667 MG CAPSULE PO SCH ×3 (07:40→17:41)
[2020-03-06] MEDS: FERROUS SULFATE 220 MG/5 ML ORAL SOL PO SCH ×2 (07:40→17:41)
[2020-03-06 10:01] VITALS: BP 117/75
[2020-03-06] MEDS: MIDODRINE 5 MG TABLET PO SCH ×3 (11:39→20:45)
[2020-03-06] MEDS: LINEZOLID 20MG/ML ORAL SUSP PO SCH ×2 (11:39→20:43)
[2020-03-06] MEDS: CALCITRIOL 0.25 MCG CAPSULE PO SCH (11:40)
[2020-03-06] MEDS: ERTAPENEM 0.5 GM in SODIUM CHLORIDE 0.9% 50 ML IV SCH (11:40)
[2020-03-06 12:31] VITALS: BP 105/66
[2020-03-06] MEDS ORDERED: ARANESP 40 MCG/ML **ESRD SQ SCH (13:00)
[2020-03-06 19:32] VITALS: BP 104/66
[2020-03-06] MEDS: TRAZODONE 50MG TABLET PO SCH (20:44)
[2020-03-06] MEDS: GABAPENTIN 100 MG CAPSULE PO PRN (20:44)
[2020-03-06] MEDS: MELATONIN 5 MG TABLET PO PRN (20:44)
[2020-03-06] MEDS: DONEPEZIL 5 MG TABLET PO SCH (20:44)
[2020-03-07] MEDS: HYDROmorphone 1 MG/ML, 1ML INJ IV PRN (00:46)
[2020-03-07] MEDS: HEPARIN 5,000 UNITS/ML, 1ML SQ SCH ×3 (03:45→20:41)
[2020-03-07] MEDS: OXYcodone IR 5MG TABLET PO PRN (04:21)
[2020-03-07 04:45] LABS: BASOPHILS % (AUTO) 1 % (0-1); EOSINOPHILS % (AUTO) 1 % (1-7); LYMPHOCYTES % (AUTO) 3 % (22-44); MEAN CORPUSCULAR HGB CONC 31.8 g/dL (32.4-35.8); MEAN PLATELET VOLUME 11.6 fL (7.4-10.4); MONOCYTES % (AUTO) 12 % (2-9); NEUTROPHILS % (AUTO) 84 % (42-75); PLATELET COUNT 132 x10^3/uL (130-400); RED BLOOD COUNT 2.86 x10^6/uL (3.82-5.3); RED CELL DISTRIBUTION WIDTH 19.3 % (9.6-15.2)
[2020-03-07 06:11] LABS: MD SCAN
[2020-03-07] MEDS: FERROUS SULFATE 220 MG/5 ML ORAL SOL PO SCH ×2 (08:00→16:51)
[2020-03-07] MEDS: LINEZOLID 20MG/ML ORAL SUSP PO SCH ×2 (08:01→20:40)
[2020-03-07] MEDS: MIDODRINE 5 MG TABLET PO SCH ×3 (08:02→20:40)
[2020-03-07] MEDS: CALCIUM ACETATE 667 MG CAPSULE PO SCH ×3 (08:02→16:51)
[2020-03-07] MEDS: CALCITRIOL 0.25 MCG CAPSULE PO SCH (08:03)
[2020-03-07 08:58] VITALS: BP 109/73
[2020-03-07] MEDS: LORazepam 0.5MG TABLET PO PRN (11:35)
[2020-03-07] MEDS: ERTAPENEM 0.5 GM in SODIUM CHLORIDE 0.9% 50 ML IV SCH (11:35)
[2020-03-07 14:11] VITALS: BP 115/73
[2020-03-07 19:47] VITALS: BP 103/64
[2020-03-07] MEDS: DONEPEZIL 5 MG TABLET PO SCH (20:40)
[2020-03-07] MEDS: TRAZODONE 50MG TABLET PO SCH (20:40)
[2020-03-08] MEDS: OXYcodone IR 5MG TABLET PO PRN ×3 (00:14→13:17)
[2020-03-08 00:52] VITALS: BP 97/61
[2020-03-08] MEDS: HEPARIN 5,000 UNITS/ML, 1ML SQ SCH ×2 (03:25→11:45)
[2020-03-08 04:06] LABS: BASOPHILS % (AUTO) 2 % (0-1); EOSINOPHILS % (AUTO) 1 % (1-7); LYMPHOCYTES % (AUTO) 3 % (22-44); MEAN CORPUSCULAR HEMOGLOBIN 32.7 pg (27.0-34.8); MEAN CORPUSCULAR HGB CONC 31.7 g/dL (32.4-35.8); MEAN PLATELET VOLUME 12.3 fL (7.4-10.4); MONOCYTES % (AUTO) 11 % (2-9); NEUTROPHILS % (AUTO) 84 % (42-75); PLATELET COUNT 137 x10^3/uL (130-400); RED BLOOD COUNT 2.58 x10^6/uL (3.82-5.3); RED CELL DISTRIBUTION WIDTH 19.6 % (9.6-15.2)
[2020-03-08 04:10] LABS: MD NO
[2020-03-08 04:12] LABS: ALBUMIN 2.3 g/dL (3.4-5.0); ANION GAP 8 mmol/L (5-15); CHLORIDE 99 mmol/L (98-107); CREATININE 5.59 mg/dL (0.55-1.02)
[2020-03-08] MEDS: MIDODRINE 5 MG TABLET PO SCH (07:47)
[2020-03-08] MEDS: LINEZOLID 20MG/ML ORAL SUSP PO SCH (07:48)
[2020-03-08] MEDS: CALCIUM ACETATE 667 MG CAPSULE PO SCH ×2 (07:48→13:15)
[2020-03-08] MEDS: CALCITRIOL 0.25 MCG CAPSULE PO SCH (07:48)
[2020-03-08] MEDS: FERROUS SULFATE 220 MG/5 ML ORAL SOL PO SCH (07:48)
[2020-03-08 08:48] VITALS: BP 100/63
[2020-03-08] MEDS: ERTAPENEM 0.5 GM in SODIUM CHLORIDE 0.9% 50 ML IV SCH (13:17)
[2020-03-08] MEDS: ACETAMINOPHEN 325 MG TABLET PO PRN (15:45)
== END 2020-03-08 16:05 | disposition home health service (06) | DRG 853 ==
LOC: ED 16:58 → SUATTDRO 16:59 → EDIP 16:59 → ED 17:11 → ICU 18:31 → 4WST 02-27 21:46 → 3N 02-29 23:26 → CCU 03-03 14:35 → 3N 03-04 18:25
PROVIDERS: ADMIT Internal Medicine; ATTEND Hospitalist
PROC: 5A1D70Z Performance of Urinary Filtration, Intermittent, Less than 6 Hours Per Day (ICD-10-PCS; principal; 2020-02-26)
PROC: 5A1D70Z Performance of Urinary Filtration, Intermittent, Less than 6 Hours Per Day (ICD-10-PCS; 2020-02-27)
PROC: 0T9B30Z Drainage of Bladder with Drainage Device, Percutaneous Approach (ICD-10-PCS; 2020-02-29)
PROC: 5A1D70Z Performance of Urinary Filtration, Intermittent, Less than 6 Hours Per Day (ICD-10-PCS; 2020-03-01)
PROC: 0W993ZZ Drainage of Right Pleural Cavity, Percutaneous Approach (ICD-10-PCS; 2020-03-02)
PROC: 0H97XZZ Drainage of Abdomen Skin, External Approach (ICD-10-PCS; 2020-03-02)
PROC: 0BH17EZ Insertion of Endotracheal Airway into Trachea, Via Natural or Artificial Opening (ICD-10-PCS; 2020-03-03)
PROC: 5A1935Z Respiratory Ventilation, Less than 24 Consecutive Hours (ICD-10-PCS; 2020-03-03)
PROC: 0BNK4ZZ Release Right Lung, Percutaneous Endoscopic Approach (ICD-10-PCS; 2020-03-03)
PROC: 5A1D70Z Performance of Urinary Filtration, Intermittent, Less than 6 Hours Per Day (ICD-10-PCS; 2020-03-05)
PROC: 5A1D70Z Performance of Urinary Filtration, Intermittent, Less than 6 Hours Per Day (ICD-10-PCS; 2020-03-06)
DX: A41.9 Sepsis, unspecified organism (principal); J96.01 Acute respiratory failure with hypoxia; N18.6 End stage renal disease; R65.21 Severe sepsis with septic shock; J85.1 Abscess of lung with pneumonia; I21.A1 Myocardial infarction type 2; G93.41 Metabolic encephalopathy; J15.9 Unspecified bacterial pneumonia; T80.211A Bloodstream infection due to central venous catheter, initial encounter; E87.1 Hypo-osmolality and hyponatremia; E87.2 Acidosis; A28.0 Pasteurellosis; A28.1 Cat-scratch disease; Z16.21 Resistance to vancomycin; Z16.19 Resistance to other specified beta lactam antibiotics; Z16.11 Resistance to penicillins; M48.54XA Collapsed vertebra, not elsewhere classified, thoracic region, initial encounter for fracture; J44.0 Chronic obstructive pulmonary disease with (acute) lower respiratory infection; I50.32 Chronic diastolic (congestive) heart failure; I13.2 Hypertensive heart and chronic kidney disease with heart failure and with stage 5 chronic kidney disease, or end stage renal disease; F11.20 Opioid dependence, uncomplicated; C90.01 Multiple myeloma in remission; Z96.89 Presence of other specified functional implants; Z66 Do not resuscitate; Z20.822 Contact with and (suspected) exposure to COVID-19; Y84.8 Other medical procedures as the cause of abnormal reaction of the patient, or of later complication, without mention of misadventure at the time of the procedure; N30.90 Cystitis, unspecified without hematuria; I95.89 Other hypotension; I48.91 Unspecified atrial fibrillation; I27.20 Pulmonary hypertension, unspecified; I25.10 Atherosclerotic heart disease of native coronary artery without angina pectoris; I07.1 Rheumatic tricuspid insufficiency; G89.4 Chronic pain syndrome; F41.9 Anxiety disorder, unspecified; B95.2 Enterococcus as the cause of diseases classified elsewhere; B96.1 Klebsiella pneumoniae [K. pneumoniae] as the cause of diseases classified elsewhere; D63.1 Anemia in chronic kidney disease; D69.6 Thrombocytopenia, unspecified; E11.22 Type 2 diabetes mellitus with diabetic chronic kidney disease; E78.5 Hyperlipidemia, unspecified; E83.51 Hypocalcemia; E87.5 Hyperkalemia; E88.09 Other disorders of plasma-protein metabolism, not elsewhere classified; F03.90 Unspecified dementia, unspecified severity, without behavioral disturbance, psychotic disturbance, mood disturbance, and anxiety; Z99.2 Dependence on renal dialysis; Z92.21 Personal history of antineoplastic chemotherapy; Z79.899 Other long term (current) drug therapy; I25.2 Old myocardial infarction
CPT/HCPCS: 10030; 32555; 36415; 36600; 71045; 71250; 75989; 76700; 76705; 80048; 80053; 80069; 80202; 81001; 82272; 82306; 82330; 82533; 82607; 82728; 82803; 83540; 83550; 83605; 83615; 83735; 83880; 83970; 83986; 84100; 84439; 84443; 84478; 84484; 84550; 85025; 85651; 86140; 86705; 86706; 87040; 87070; 87075; 87077; 87081; 87086; 87102; 87186; 87205; 87340; 88305; 89051; 90935; 93005; 93306; 94002; 94003; 99291; C1729; G0378; J0171; J0690; J0696; J0882; J1100; J1170; J1335; J1644; J2405; J2543; J2704; J3010; J3370; J7060; P9047; C9113; J0282; J2270; J7030; J7040; J7050; U0003

== ENCOUNTER → 2020-07-09 | Outpatient (CLI) | payer MEDICARE, BC ==
[~2020-07-09] MED LIST changes: +DONE5TAB14 PO; +MIDO10TA PO; +ONDA4TAB7 PO
== END | disposition home or self-care (01) ==
LOC: CVU 13:43
PROVIDERS: ATTEND Internal Medicine Hematology & Oncology
DX: C90.00 Multiple myeloma not having achieved remission (principal); I08.3 Combined rheumatic disorders of mitral, aortic and tricuspid valves; I11.9 Hypertensive heart disease without heart failure
CPT/HCPCS: 93306

== ENCOUNTER → 2020-08-27 | Outpatient (CLI) | payer MEDICARE, BC | END | disposition home or self-care (01) | LOC: WOUND 08:31 | PROVIDERS: ATTEND Internal Medicine | DX: T81.49XA Infection following a procedure, other surgical site, initial encounter (principal); L89.326 Pressure-induced deep tissue damage of left buttock; S31.000A Unspecified open wound of lower back and pelvis without penetration into retroperitoneum, initial encounter; L89.45 Pressure ulcer of contiguous site of back, buttock and hip, unstageable; I08.3 Combined rheumatic disorders of mitral, aortic and tricuspid valves; F41.9 Anxiety disorder, unspecified; I13.11 Hypertensive heart and chronic kidney disease without heart failure, with stage 5 chronic kidney disease, or end stage renal disease; N18.6 End stage renal disease; Z85.79 Personal history of other malignant neoplasms of lymphoid, hematopoietic and related tissues; X58.XXXA Exposure to other specified factors, initial encounter; Y93.89 Activity, other specified; Y92.89 Other specified places as the place of occurrence of the external cause; Z99.2 Dependence on renal dialysis; Y99.8 Other external cause status; Y83.8 Other surgical procedures as the cause of abnormal reaction of the patient, or of later complication, without mention of misadventure at the time of the procedure; Y92.238 Other place in hospital as the place of occurrence of the external cause | CPT/HCPCS: 11042; G0463 ==

== ENCOUNTER 2020-09-06 14:48 | Outpatient (CLI) | payer MEDICARE, BC | END 2020-09-06 23:59 | disposition home or self-care (01) | LOC: WOUND 14:48 | PROVIDERS: ATTEND Internal Medicine | DX: T81.49XD Infection following a procedure, other surgical site, subsequent encounter (principal); L89.323 Pressure ulcer of left buttock, stage 3; L89.45 Pressure ulcer of contiguous site of back, buttock and hip, unstageable; S31.000D Unspecified open wound of lower back and pelvis without penetration into retroperitoneum, subsequent encounter; I08.3 Combined rheumatic disorders of mitral, aortic and tricuspid valves; F41.9 Anxiety disorder, unspecified; I31.1 Chronic constrictive pericarditis; N18.6 End stage renal disease; Z85.79 Personal history of other malignant neoplasms of lymphoid, hematopoietic and related tissues; Z99.2 Dependence on renal dialysis; W19.XXXD Unspecified fall, subsequent encounter; Y83.8 Other surgical procedures as the cause of abnormal reaction of the patient, or of later complication, without mention of misadventure at the time of the procedure | CPT/HCPCS: 11042 ==

== ENCOUNTER 2020-09-13 10:53 | Outpatient (CLI) | payer MEDICARE, BC | END 2020-09-13 23:59 | disposition home or self-care (01) | LOC: WOUND 10:53 | PROVIDERS: ATTEND Internal Medicine | DX: T81.49XD Infection following a procedure, other surgical site, subsequent encounter (principal); L89.323 Pressure ulcer of left buttock, stage 3; L89.45 Pressure ulcer of contiguous site of back, buttock and hip, unstageable; S31.000D Unspecified open wound of lower back and pelvis without penetration into retroperitoneum, subsequent encounter; I08.3 Combined rheumatic disorders of mitral, aortic and tricuspid valves; F41.9 Anxiety disorder, unspecified; I13.11 Hypertensive heart and chronic kidney disease without heart failure, with stage 5 chronic kidney disease, or end stage renal disease; N18.6 End stage renal disease; Z85.79 Personal history of other malignant neoplasms of lymphoid, hematopoietic and related tissues; Z99.2 Dependence on renal dialysis; W19.XXXD Unspecified fall, subsequent encounter; Y83.8 Other surgical procedures as the cause of abnormal reaction of the patient, or of later complication, without mention of misadventure at the time of the procedure | CPT/HCPCS: 97597 ==

== ENCOUNTER → 2020-09-21 | Outpatient (CLI) | payer MEDICARE, BC | END | disposition home or self-care (01) | LOC: WOUND 13:00 | PROVIDERS: ATTEND Nurse Practitioner Family | DX: T81.49XD Infection following a procedure, other surgical site, subsequent encounter (principal); L89.326 Pressure-induced deep tissue damage of left buttock; L89.156 Pressure-induced deep tissue damage of sacral region; L89.45 Pressure ulcer of contiguous site of back, buttock and hip, unstageable; S31.000D Unspecified open wound of lower back and pelvis without penetration into retroperitoneum, subsequent encounter; I08.3 Combined rheumatic disorders of mitral, aortic and tricuspid valves; F41.9 Anxiety disorder, unspecified; I13.11 Hypertensive heart and chronic kidney disease without heart failure, with stage 5 chronic kidney disease, or end stage renal disease; N18.6 End stage renal disease; Z85.79 Personal history of other malignant neoplasms of lymphoid, hematopoietic and related tissues; X58.XXXD Exposure to other specified factors, subsequent encounter; Y83.8 Other surgical procedures as the cause of abnormal reaction of the patient, or of later complication, without mention of misadventure at the time of the procedure | CPT/HCPCS: 97597 ==

== ENCOUNTER 2020-09-28 13:03 | Outpatient (CLI) | payer MEDICARE, BC | END 2020-09-28 23:59 | disposition home or self-care (01) | LOC: WOUND 13:03 | PROVIDERS: ATTEND Nurse Practitioner Family | DX: T81.49XD Infection following a procedure, other surgical site, subsequent encounter (principal); L89.156 Pressure-induced deep tissue damage of sacral region; L89.323 Pressure ulcer of left buttock, stage 3; L89.312 Pressure ulcer of right buttock, stage 2; L89.45 Pressure ulcer of contiguous site of back, buttock and hip, unstageable; S31.000D Unspecified open wound of lower back and pelvis without penetration into retroperitoneum, subsequent encounter; I08.3 Combined rheumatic disorders of mitral, aortic and tricuspid valves; F41.9 Anxiety disorder, unspecified; I13.11 Hypertensive heart and chronic kidney disease without heart failure, with stage 5 chronic kidney disease, or end stage renal disease; N18.6 End stage renal disease; Z85.79 Personal history of other malignant neoplasms of lymphoid, hematopoietic and related tissues; Z99.2 Dependence on renal dialysis; W19.XXXD Unspecified fall, subsequent encounter; Y83.8 Other surgical procedures as the cause of abnormal reaction of the patient, or of later complication, without mention of misadventure at the time of the procedure | CPT/HCPCS: 97597 ==

== ENCOUNTER 2020-10-05 13:37 | Outpatient (CLI) | payer MEDICARE, BC | END 2020-10-05 23:59 | disposition home or self-care (01) | LOC: WOUND 13:37 | PROVIDERS: ATTEND Nurse Practitioner Family | DX: T81.49XD Infection following a procedure, other surgical site, subsequent encounter (principal); L89.156 Pressure-induced deep tissue damage of sacral region; L89.323 Pressure ulcer of left buttock, stage 3; L89.312 Pressure ulcer of right buttock, stage 2; L89.45 Pressure ulcer of contiguous site of back, buttock and hip, unstageable; S31.000D Unspecified open wound of lower back and pelvis without penetration into retroperitoneum, subsequent encounter; I08.3 Combined rheumatic disorders of mitral, aortic and tricuspid valves; F41.9 Anxiety disorder, unspecified; I13.11 Hypertensive heart and chronic kidney disease without heart failure, with stage 5 chronic kidney disease, or end stage renal disease; N18.6 End stage renal disease; Z85.79 Personal history of other malignant neoplasms of lymphoid, hematopoietic and related tissues; Z99.2 Dependence on renal dialysis; W19.XXXD Unspecified fall, subsequent encounter; Y83.8 Other surgical procedures as the cause of abnormal reaction of the patient, or of later complication, without mention of misadventure at the time of the procedure | CPT/HCPCS: 97597 ==